=== PATIENT | male | born 1965 | race African-American/Black ===

== ENCOUNTER 2024-08-26 14:22 | Inpatient (IN) | payer OTHER ==
[2024-08-26] VITALS (9 sets, daily range): BP systolic 150–169; BP diastolic 81–106
[~2024-08-26] VITALS: Ht 182.9 cm; Wt 104.8 kg
[2024-08-26 15:08] LABS: BASO% 0.7 % (0-3); EOS% 4.7 % (0-8); HEMATOCRIT 42.2 % (39.0-50.0); HEMOGLOBIN 14.1 g/dl (14.0-18.0); IMMATURE GRANULOCYTES 0.3 % (0.0-5.0); LYMPH% 16.9 % (15-41); MEAN CELL VOLUME 83.1 fL CALC (80.0-100.0); MEAN CORPUSCULAR HGB 27.8 pG CALC (26.0-32.0); MEAN CORPUSCULAR HGB CONC 33.4 g/dL CAL (32.0-36.0); MONO% 6.2 % (2-13); NEUT# 7.65 thou/uL (1.82-7.42); NEUT% 71.2 % (42-76); RED BLOOD COUNT 5.08 mill/uL (4.70-6.10); RED CELL DISTRI WIDTH 13.9 % (11.5-15.5)
[2024-08-26 15:10] LABS: URINE BILIRUBIN - DIPSTICK Negative (NEGATIVE); URINE BLOOD DIPSTICK Negative (NEGATIVE); URINE GLUCOSE - DIPSTICK 100 mg/dL (NEGATIVE); URINE KETONE Negative (NEGATIVE); URINE LEUK ESTERASE Negative (NEGATIVE); URINE NITRITE - DIPSTICK Negative (Negative); URINE PH 7.5 (4.5-8.0); URINE PROTEIN - DIPSTICK Negative (NEG-TRACE); URINE UROBILINOGEN - DIPSTICK 0.2 E.U./dL (0.2)
[2024-08-26 15:11] LABS: URINE COLOR Light yellow
[2024-08-26 15:23] LABS: ALBUMIN 4.1 g/dL (3.2-5.0); BILIRUBIN, TOTAL 0.6 mg/dL (0.2-1.3); CREATININE 1.1 mg/dL (0.7-1.3); POTASSIUM 3.4 mmol/l (3.5-5.1); TOTAL PROTEIN 7.6 g/dL (6.3-8.2)
[2024-08-26 15:38] LABS: PROTHROMBIN TIME 10.4 SECONDS (9.0-12.5)
[2024-08-26] MEDS ORDERED: SODIUM CHLORIDE 0.9% 1,000 ML IV ONE (16:05)
[2024-08-26] MEDS ORDERED: POTASSIUM CHLORIDE 20 MEQ/TAB PO ONE (16:10)
[2024-08-26] MEDS ORDERED: hydrALAZINE HCL 20 MG/ML VIAL(1 ML) IV ONE (17:05)
[2024-08-26] MEDS ORDERED: MECLIZINE25 MG PO (17:54)
[2024-08-26] MEDS ORDERED: NOVOLIN N100 UNIT SC (17:55)
[2024-08-26] MEDS ORDERED: AMLODIPINE BESY10 MG PO (17:56)
[2024-08-26] MEDS ORDERED: METOPROLOL TART50 MG PO (17:57)
[2024-08-26] MEDS ORDERED: HYDRALAZINE HYD25 MG PO (17:59)
[2024-08-26] MEDS ORDERED: SINGULAIR10 MG PO (18:02)
[2024-08-26] MEDS ORDERED: NOVOLIN N100 UNIT (18:03)
[2024-08-26] MEDS ORDERED: BAYER ASPIRIN E81 MG PO (18:04)
[2024-08-26] MEDS ORDERED: ATORVASTATIN CA40 MG PO (18:05)
[2024-08-26] MEDS ORDERED: COZAAR100 MG PO (18:06)
[2024-08-26] MEDS ORDERED: HYDROCHLOROT12.5 M1 PO (18:07)
[2024-08-26] MEDS ORDERED: SODIUM CHLORIDE 0.9% 1,000 ML IV PRN (18:55)
[2024-08-26] MEDS ORDERED: ACETAMINOPHEN 325 MG/TAB PO PRN (18:55)
[2024-08-26] MEDS ORDERED: MAGNESIUM HYDROXIDE 30 ML UDC PO PRN (18:55)
[2024-08-26] MEDS ORDERED: ENOXAPARIN SODIUM 40 MG/0.4 ML SYR SC SCH (21:00)
[2024-08-26] MEDS ORDERED: hydrALAZINE HCL 20 MG/ML VIAL(1 ML) IV PRN (22:35)
[2024-08-26] MEDS ORDERED: MECLIZINE HCL 25 MG/TAB PO PRN (22:35)
[2024-08-26] MEDS ORDERED: MONTELUKAST SODIUM 10 MG/TAB PO SCH ×2 (23:10→23:15)
[2024-08-26] MEDS ORDERED: ATORVASTATIN CALCIUM 40 MG/TAB PO SCH ×2 (23:10→23:15)
[2024-08-26] MEDS ORDERED: DEXTROSE 50% 50 ML/SYR IV PRN (23:15)
[2024-08-26] MEDS ORDERED: DEXTROSE 250 ML IV PRN (23:15)
[2024-08-26] MEDS ORDERED: INSULIN LISPRO 100 UNITS/ML ML SC SCH (23:15)
[2024-08-27] VITALS (8 sets, daily range): BP systolic 142–167; BP diastolic 74–92
[2024-08-27 08:53] LABS: BASO% 0.4 % (0-3); EOS% 3.8 % (0-8); HEMATOCRIT 42.9 % (39.0-50.0); HEMOGLOBIN 14.1 g/dl (14.0-18.0); IMMATURE GRANULOCYTES 0.1 % (0.0-5.0); LYMPH% 19.2 % (15-41); MEAN CELL VOLUME 83.1 fL CALC (80.0-100.0); MEAN CORPUSCULAR HGB 27.3 pG CALC (26.0-32.0); MEAN CORPUSCULAR HGB CONC 32.9 g/dL CAL (32.0-36.0); MONO% 7.2 % (2-13); NEUT# 6.84 thou/uL (1.82-7.42); NEUT% 69.3 % (42-76); RED BLOOD COUNT 5.16 mill/uL (4.70-6.10); RED CELL DISTRI WIDTH 14.1 % (11.5-15.5)
[2024-08-27] MEDS ORDERED: ASPIRIN EC 81 MG/TAB PO SCH (09:00)
[2024-08-27] MEDS ORDERED: amLODIPine BESYLATE 5 MG/TAB PO SCH (09:00)
[2024-08-27] MEDS ORDERED: LOSARTAN Potassium 50 MG/TAB PO SCH (09:00)
[2024-08-27] MEDS ORDERED: INSULIN NPH 100 UNIT/ML SC SCH (09:00)
[2024-08-27] MEDS ORDERED: METOPROLOL TARTRATE 50 MG/TAB PO SCH ×2 (09:00)
[2024-08-27] MEDS ORDERED: hydrALAZINE HCL 25 MG/TAB PO SCH ×2 (09:00)
[2024-08-27 09:05] LABS: ALBUMIN 3.7 g/dL (3.2-5.0); BILIRUBIN, TOTAL 0.7 mg/dL (0.2-1.3); MAGNESIUM 1.7 mg/dL (1.6-2.3); POTASSIUM 3.9 mmol/l (3.5-5.1); TOTAL PROTEIN 6.9 g/dL (6.3-8.2)
[2024-08-27] MEDS ORDERED: CLOPIDOGREL BISULFATE 75 MG/TAB TAB PO SCH (16:00)
[2024-08-27 16:23] LABS: CHOLESTEROL HDL RATIO 3.8 (<4.4 (CALC))
[2024-08-27] MEDS ORDERED: ATORVASTATIN CALCIUM 40 MG/TAB PO SCH (21:00)
[2024-08-27] MEDS ORDERED: MONTELUKAST SODIUM 10 MG/TAB PO SCH (21:00)
[2024-08-28] VITALS (9 sets, daily range): BP systolic 153–173; BP diastolic 85–96
[2024-08-28 05:00] LABS: BASO% 0.6 % (0-3); EOS% 3.2 % (0-8); HEMATOCRIT 42.6 % (39.0-50.0); HEMOGLOBIN 14.2 g/dl (14.0-18.0); IMMATURE GRANULOCYTES 0.1 % (0.0-5.0); LYMPH% 15.2 % (15-41); MEAN CELL VOLUME 83.4 fL CALC (80.0-100.0); MEAN CORPUSCULAR HGB 27.8 pG CALC (26.0-32.0); MEAN CORPUSCULAR HGB CONC 33.3 g/dL CAL (32.0-36.0); MONO% 7.2 % (2-13); NEUT# 8.03 thou/uL (1.82-7.42); NEUT% 73.7 % (42-76); RED BLOOD COUNT 5.11 mill/uL (4.70-6.10); RED CELL DISTRI WIDTH 14.1 % (11.5-15.5)
[2024-08-28 05:21] LABS: ALBUMIN 3.5 g/dL (3.2-5.0); BILIRUBIN, TOTAL 0.6 mg/dL (0.2-1.3); CREATININE 0.9 mg/dL (0.7-1.3); MAGNESIUM 1.9 mg/dL (1.6-2.3); POTASSIUM 3.6 mmol/l (3.5-5.1); TOTAL PROTEIN 6.8 g/dL (6.3-8.2)
[2024-08-28] MEDS ORDERED: LACTULOSE 20 GM/30 ML UDC PO SCH (08:30)
[2024-08-28] MEDS ORDERED: SIMETHICONE 20 MG/0.3 ML PO PRN (20:35)
[2024-08-28] MEDS ORDERED: CLARIFY DOSE PO PRN (20:55)
[2024-08-29 00:14] VITALS: BP 164/95
[2024-08-29] MEDS ORDERED: SIMETHICONE 20 MG/0.3 ML PO ONE (00:27)
[2024-08-29 02:39] VITALS: BP 164/90
[2024-08-29 05:33] VITALS: BP 164/90
[2024-08-29 05:34] LABS: BASO% 0.4 % (0-3); HEMATOCRIT 42.4 % (39.0-50.0); HEMOGLOBIN 14.1 g/dl (14.0-18.0); IMMATURE GRANULOCYTES 0.2 % (0.0-5.0); LYMPH% 14.4 % (15-41); MEAN CELL VOLUME 83.6 fL CALC (80.0-100.0); MEAN CORPUSCULAR HGB 27.8 pG CALC (26.0-32.0); MEAN CORPUSCULAR HGB CONC 33.3 g/dL CAL (32.0-36.0); MONO% 7.8 % (2-13); NEUT# 8.02 thou/uL (1.82-7.42); NEUT% 74.2 % (42-76); RED BLOOD COUNT 5.07 mill/uL (4.70-6.10); RED CELL DISTRI WIDTH 14.3 % (11.5-15.5)
[2024-08-29 05:41] LABS: ALBUMIN 3.8 g/dL (3.2-5.0); BILIRUBIN, TOTAL 0.6 mg/dL (0.2-1.3); CREATININE 0.9 mg/dL (0.7-1.3); POTASSIUM 3.8 mmol/l (3.5-5.1); TOTAL PROTEIN 7.1 g/dL (6.3-8.2)
[2024-08-29 07:45] VITALS: BP 158/106
[2024-08-29 09:02] VITALS: BP 158/106
[2024-08-29] MEDS ORDERED: PLAVIX75 MG PO (10:58)
== END 2024-08-29 12:50 | DRG 66 ==
LOC: ED 14:22 → ED-I 17:44 → ED 18:07 → MS2 18:08
PROVIDERS: Nurse Practitioner; Nurse Practitioner Family; ADMIT Internal Medicine; ATTEND Internal Medicine
DX: I63.81 Other cerebral infarction due to occlusion or stenosis of small artery (principal); R29.700 NIHSS score 0; R42 Dizziness and giddiness; R53.1 Weakness; I16.0 Hypertensive urgency; E86.0 Dehydration; I10 Essential (primary) hypertension; E11.9 Type 2 diabetes mellitus without complications; E78.5 Hyperlipidemia, unspecified; Z87.891 Personal history of nicotine dependence; Z20.822 Contact with and (suspected) exposure to COVID-19
CPT/HCPCS: J0360; J1650; J1815